=== PATIENT | female | born 1975 ===

== ENCOUNTER → 2019-05-15 | Outpatient (CLI) | payer SELFPAY ==
[2019-05-15 14:15] LABS: BASOPHILS ABSOLUTE AUTO 0.03 K/mm3 (0.00-0.23); BASOPHILS PERCENT AUTO 0 % (0-2); EOSINOPHILS ABSOLUTE AUTO 0.05 K/mm3 (0.00-0.68); EOSINOPHILS PERCENT AUTO 1 % (0-6); Hematocrit 40.4 % (33.0-51.0); Hemoglobin 12.4 g/dL (11.5-16.0); IMMATURE GRAN ABSOLUTE AUTO 0.02 K/mm3 (0.00-0.10); IMMATURE GRAN PERCENT AUTO 0 % (0-1); LYMPHOCYTES ABSOLUTE AUTO 1.99 K/mm3 (0.84-5.20); LYMPHOCYTES PERCENT AUTO 29 % (21-46); MONOCYTES ABSOLUTE AUTO 0.63 K/mm3 (0.16-1.47); MONOCYTES PERCENT AUTO 9 % (4-13); Mean Corpuscular HGB 24.8 pg (26.0-34.0); Mean Corpuscular HGB Conc 30.7 g/dL (31.5-36.5); Mean Corpuscular Volume 81 fL (80-100); Mean Platelet Volume 9.7 fL (9.1-12.4); NEUTROPHILS ABSOLUTE AUTO 4.06 K/mm3 (1.96-9.15); NEUTROPHILS PERCENT AUTO 60 % (41-73); Platelet Count 343 K/mm3 (150-400); RDW Coefficient Variation 14.6 % (11.7-14.2); RDW Standard Deviation 42.6 fL (35.1-46.3); Red Blood Cell Count 4.99 M/mm3 (3.80-5.20); White Blood Cell Count 6.78 K/mm3 (4.00-11.30)
[2019-05-15 14:40] LABS: Alanine Aminotransfer (ALT/SGP 22 U/L (12-78); Albumin, Blood 3.8 g/dL (3.4-5.0); Alk Phos 62 U/L (50-136); Anion Gap 6 mmol/L (6-16); Aspartate Aminotrans (AST/SGOT 23 U/L (12-37); Bilirubin, Direct 0.2 mg/dL (0.0-0.3); Bilirubin, Indirect 0.7 mg/dL (0.1-0.7); Bilirubin, Total 0.9 mg/dL (0.1-1.0); Blood Urea Nitrogen 10 mg/dL (8-24); Bun/Creatinine Ratio 15.4 (12.0-20.0); CHOL/HDL RATIO 2.2; CO2, Blood 24 mmol/L (21-32); Calcium, Blood 8.9 mg/dL (8.5-10.1); Chloride, Blood 108 mmol/L (98-108); Cholesterol 168 mg/dL (50-200); Creatinine, Blood 0.65 mg/dL (0.40-1.00); Glomerular Filtration Rate >60 (60-); Glucose, Blood 81 mg/dL (70-99); HDL Cholesterol 78 mg/dL (>39); Low Density Lipoprotein Chol 76 mg/dL (0-110); Potassium, Blood 3.7 mmol/L (3.5-5.5); Sodium, Blood 138 mmol/L (136-145); Total Protein, Blood 7.8 g/dL (6.4-8.2); Triglycerides 71 mg/dL (30-160); Very Low Density Lipoprot Chol 14 mg/dL (6-32)
== END ==
LOC: LAB SHORT 14:00
PROVIDERS: Registered Nurse
DX: Z00.00 Encounter for general adult medical examination without abnormal findings (principal); R10.13 Epigastric pain; F41.8 Other specified anxiety disorders
CPT/HCPCS: 80053; 80061; 82248; 83690; 84443; 85025

== ENCOUNTER 2019-09-06 11:31 | Day surgery (SDC) | payer BC ==
[~2019-09-06] VITALS: Ht 162.6 cm; Wt 88.9 kg
[~2019-09-06 11:31] MED LIST: ONDA4ODT MM; PROM25 PO
--- NOTE | 2019-09-06 12:32 | NUR ---
History, Chart, Medications and Allergies reviewed before start of procedure. Patient states colon prep results clear. Patient States Post-Procedure ride home has been arranged.
--- NOTE | 2019-09-06 13:47 | NUR ---
09/06/19 1347 JUVENAL DIANA History, Chart, Medications and Allergies reviewed before start of procedure. 3-LEAD EKG REVIEWED WITH PHYSICIAN PRIOR TO START OF PROCEDURE. O2 VIA N/C INTACT THROUGHOUT SEDATION/PROCEDURE. MONITOR INTACT WITH CONTINUOUS PULSE OXIMETRY AND INTERMITTENT BP. PATIENT DETERMINED TO BE ASA APPROPRIATE FOR PROPOFOL SEDATION PRIOR TO START OF PROCEDURE BY DR. BROWN.
--- NOTE | 2019-09-06 15:04 | NUR ---
DISCHARGE Patient up to Ambulate independently. Gait steady. Discharge instructions reviewed with patient. Patient verbalizes understanding. Copy given to patient to take home. Patient States Post-Procedure ride home has been arranged. Discharged via wheelchair to private car for ride home.
== END 2019-09-07 22:43 | disposition home or self-care (01) ==
LOC: ORSCMMR 11:31 → ORD 13:00 → ORSCMMR 09-07 22:43
PROVIDERS: Internal Medicine Gastroenterology
PROC: 0DBN8ZX Excision of Sigmoid Colon, Via Natural or Artificial Opening Endoscopic, Diagnostic (ICD-10-PCS; principal; 2019-09-06 13:00)
PROC: 0DB68ZX Excision of Stomach, Via Natural or Artificial Opening Endoscopic, Diagnostic (ICD-10-PCS; principal; 2019-09-06 13:00)
DX: K62.5 Hemorrhage of anus and rectum (principal); R10.84 Generalized abdominal pain; R11.0 Nausea; K63.5 Polyp of colon; K29.70 Gastritis, unspecified, without bleeding; K29.80 Duodenitis without bleeding; B96.81 Helicobacter pylori [H. pylori] as the cause of diseases classified elsewhere; K20.9 Esophagitis, unspecified; K57.30 Diverticulosis of large intestine without perforation or abscess without bleeding; K64.8 Other hemorrhoids; Z87.891 Personal history of nicotine dependence; E66.9 Obesity, unspecified; Z68.34 Body mass index [BMI] 34.0-34.9, adult; Z79.899 Other long term (current) drug therapy
CPT/HCPCS: 88305; 88342; J2250; J2704; J7120

== ENCOUNTER 2020-06-05 11:09 | Day surgery (SDC) | payer BC ==
[~2020-06-05] VITALS: Ht 165.1 cm; Wt 91.9 kg
[2020-06-05] MEDS ORDERED: ALBU90OI (12:13)
--- NOTE | 2020-06-05 13:33 | NUR ---
06/05/20 1333 Aleshia Hare15MG EPI ADDED TO 30CC 0.5% MARCAINE=0.5% MARCAINE WITH EPI 1:200,000.
--- NOTE | 2020-06-05 15:04 | NUR ---
06/05/20 1504 Kaelyn Taylor NERVE BLOCK PREFORMED BY DR MALLOY. PT TOLERATED PROCEDURE WELL. PRIOR TO THE PROCEDURE PT RATED PAIN 10/10. PT NOW RATES PAIN 8/10.
== END 2020-06-05 15:53 | disposition home or self-care (01) ==
LOC: ORSCSDS 11:09
PROVIDERS: Orthopaedic Surgery
PROC: 0PSJ04Z Reposition Left Radius with Internal Fixation Device, Open Approach (ICD-10-PCS; principal; 2020-06-05 12:15)
DX: S62.102P Fracture of unspecified carpal bone, left wrist, subsequent encounter for fracture with malunion (principal); I10 Essential (primary) hypertension; F41.9 Anxiety disorder, unspecified; Z87.891 Personal history of nicotine dependence
CPT/HCPCS: C1713; J0171; J1100; J2250; J2405; J2704; J3010

== ENCOUNTER 2023-10-05 15:53 | Emergency (ER) | payer BC ==
[~2023-10-05] VITALS: Ht 162.6 cm; Wt 94.8 kg
[~2023-10-05 15:53] MED LIST changes: +ALBU90OI; +FAMO10; +OMEP20ER; +ONDA4
[2023-10-05] MEDS ORDERED: Adipex-P37.5 M1 PO (17:30)
[2023-10-05] MEDS ORDERED: TOPI50 PO (17:30)
[2023-10-05] MEDS ORDERED: XARELTO15 MG PO (17:49)
[2023-10-05 18:42] VITALS: BP 158/78
== END 2023-10-05 18:43 | disposition home or self-care (01) ==
LOC: ER 15:53
DX: S93.402A Sprain of unspecified ligament of left ankle, initial encounter (principal); I82.512 Chronic embolism and thrombosis of left femoral vein; I82.532 Chronic embolism and thrombosis of left popliteal vein; X58.XXXA Exposure to other specified factors, initial encounter
CPT/HCPCS: 93971; 99283-25